=== PATIENT | female | born 1960 | race Caucasian/White ===

== ENCOUNTER 2019-11-04 02:23 | Emergency (ER) | payer OTHER ==
[~2019-11-04] VITALS: Ht 167.6 cm; Wt 76.2 kg
[2019-11-04 02:26] VITALS: Ht 167.6 cm; Wt 76.2 kg
[2019-11-04 04:47] VITALS: BP 127/69
== END 2019-11-04 03:36 | disposition home or self-care (01) ==
LOC: ED 02:23
DX: J20.9 Acute bronchitis, unspecified (principal); J11.1 Influenza due to unidentified influenza virus with other respiratory manifestations
CPT/HCPCS: 87804; J1885; Q0092